=== PATIENT | female | born 1990 | race African-American/Black ===

== ENCOUNTER 2017-03-28 12:53 | Emergency (ER) | payer OTHER ==
--- NOTE | ~2017-03-28 | EKG ---
PATIENT: ANGELITA CASTAÑEDA UNIT #: [id number] Ventricular Rate: 73 BPM Atrial Rate: 73 BPM P-R Interval: 146 ms QRS Duration: 90 ms Q-T Interval: 340 ms QTC Calculation(Bezet): 374 ms P Gunpowder: 59 degrees Calculated R Gunpowder: -7 degrees Calculated T Gunpowder: 2 degrees Diagnosis Line: Normal sinus rhythm Diagnosis Line: Nonspecific T wave abnormality Diagnosis Line: Abnormal ECG Diagnosis Line: No previous ECGs available Diagnosis Line: Confirmed by ROBBIN NIELSEN MD ([id number]) on Diagnosis Line: 03/30/2017 3:16:24 PM INTERPRETING MD: MORALES VINES
--- NOTE | ~2017-03-28 | CT2 ---
[facility] A Service of [facility] RADIOLOGY TEXT RESULTS PATIENT: ANGELITA CASTAÑEDA LOCATION: [facility] : 88 UNIT #: [id number] AGE: [address]: Hipolito Emery MD SEX: F ORDER DR: [id number] [facility] [address] [place], [place] [address] [id number] E MR#: [id number] Acc #: [id number] NAME: ANGELITA CASTAÑEDA : 1990 SEX: F STUDY DATE/TIME: 03/28/2017 14:38 UNIT: [facility] ROOM: STUDY DESCRIPTION: CT Abd and Pelv W Cont Attending Physician: Hipolito Emery M.D. Ordering Physician: Hipolito Emery M.D. Primary Care Physician: Primary Care Physician No MEDICAL IMAGING REPORT This report is preliminary unless electronic signature is present EXAM CT abdomen and pelvis with IV contrast COMPARISON None INDICATION 26-year-old female with diffuse abdominal pain for [address] imaging of the abdomen and pelvis was performed after IV administration of 100 mL of Isovue-370. Coronal and sagittal reformats were constructed. This CT exam was performed with one or more of the following radiation dose reduction techniques: automatic exposure control, adjustment of mA and/or kV according to patient size, and iterative reconstruction. FINDINGS No acute fractures or suspicious osseous lesions. No acute findings in imaged lower chest. Please note that the dome of the right hepatic lobe is minimally excluded from field of view. There is mild nonspecific intrahepatic periportal edema. Gallbladder, pancreas, spleen, adrenal glands and kidneys are within normal limits. No hydronephrosis or hydroureter. No renal or ureteral calculi. Urinary bladder is unremarkable. 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 There is prominence of the parametrial vessels bilaterally. No definite adnexal masses are seen. Small amount of free fluid in the pelvis. No pneumoperitoneum. Abdominal aorta is normal in course and caliber, with patency of its main branches. No evidence of venous thrombosis. Scattered mesenteric lymph nodes which are not pathologic enlarged by CT size criteria and likely reactive. Largest of these measures up to approximately 7.0 mm short axis. No evidence of bowel STS. [facility] A Service of [facility] & [facility] RADIOLOGY TEXT RESULTS PATIENT: ANGELITA CASTAÑEDA LOCATION: [facility] : 88 UNIT #: [id number] AGE: [address]: Hipolito Emery MD SEX: F ORDER DR: obstruction. Oral contrast reaches the left colon. The appendix is not definitely seen. There are no secondary findings to suggest an acute appendicitis. IMPRESSION 1. Please note that the appendix is not definitely seen but there are no secondary findings to suggest an acute appendicitis. 2. There is mild periportal edema, nonspecific finding, seen within the liver only and this is diffuse, perhaps secondary to overall fluid volume status. 3. Small amount free fluid in the pelvis. 4. Bilateral tubal occlusion devices noted in the pelvis. Dictated by... Sven Avelar M.D. THIS IS AN ELECTRONICALLY VERIFIED REPORT Sven Avelar M.D. at 04/04/2017 7:21 PM SUMMER/lloyd TD: 03/28/2017 16:31 JOB #: [id number] MEDICAL IMAGING REPORT Page 1 of 1 COPY
[~2017-03-28 12:53] MED LIST: ACNE MED; MACROBID100 MG PO; PRENATAL VITAMI1 TA3 PO
[2017-03-28 13:46] LABS: URINE SOURCE CLEAN CATCH
[2017-03-28 13:50] LABS: BASOPHIL% 0.5 % (0-2.5); EOSINOPHIL# 0.1 X10e3 (0-0.7); EOSINOPHIL% 1.1 % (0.0-7.0); HEMATOCRIT 45.2 % (35.0-45.0); HEMOGLOBIN 14.9 gm/dL (12.0-16.0); LYMPHOCYTE# 0.8 X10e3 (1.0-3.5); LYMPHOCYTE% 17.2 % (17.0-45.0); MEAN CELL VOLUME 87.7 FL (83-96); MEAN CORPUSCULAR HEMOGLOBIN 28.9 PG (28-34); MEAN PLATELET VOLUME 7.2 FL (6.5-11.5); MONOCYTE# 0.5 X10e3 (0-1.0); NEUTROPHIL# 3.4 X10e3 (1.5-7.1); NEUTROPHIL% 70.2 % (40-75); PLATELET COUNT 260 X10e3 (140-420); RED BLOOD COUNT 5.16 X10e (3.90-5.30); RED CELL DISTRIBUTION WIDTH 13.1 % (11.0-15.5); WHITE BLOOD COUNT 4.8 X10e3 (4.0-10.5)
[2017-03-28 13:50] LABS: URINE APPEARANCE CLOUDY; URINE BLOOD 3+ (NEG); URINE COLOR DK YELLOW; URINE GLUCOSE NEG (NEG); URINE KETONE 2+ (NEG); URINE LEUKOCYTE ESTERASE 2+ (NEG); URINE NITRATE NEG (NEG); URINE PH 5.5 (5-8); URINE PROTEIN 1+ (NEG); URINE SPECIFIC GRAVITY 1.035 (1.003-1.035)
[2017-03-28 13:52] LABS: CULTURE INDICATED? YES; URBCS1 AUWI 100-200 /[HPF] (0-2); URINE BACTERIA AUWI 1+ (NEGATIVE); URINE SQUAMOUS EPITHELIAL CELL FEW /[HPF]; UWBCS1 AUWI 25-50 (0-5)
[2017-03-28 13:58] LABS: DIFF IND NO
[2017-03-28 14:00] LABS: U HYALINE CASTS AUWI 0-2 /[LPF]; URINE BILIRUBIN NEG (NEG); URINE MUCUS PRESENT
[2017-03-28 14:14] LABS: ALBUMIN SERUM 4.8 g/dL (3.5-5.0); BILIRUBIN, DIRECT 0.2 mg/dL (0.0-0.2); BILIRUBIN,INDIRECT 1.3 mg/dL (0.0-0.9); BILIRUBIN,TOTAL 1.5 mg/dL (0.2-2.0); CALCIUM SERUM 9.7 mg/dL (8.4-10.2); CREATININE SERUM 0.8 mg/dL (0.6-1.4); GLOM FILT RATE Estimated 117.2 mL/min (>60); POTASSIUM 3.7 mmol/L (3.5-5.1); PROTEIN TOTAL SERUM 8.8 g/dL (6.0-8.3)
== END 2017-03-28 15:32 | disposition home or self-care (01) ==
LOC: CED 12:53
DX: N39.0 Urinary tract infection, site not specified (principal)
CPT/HCPCS: 36415; 74177; 80048; 80076; 81003; 83690; 84703; 85025; 87086; 93005; 96361; 96372; 96374; 99284; J0500; J2405; Q9967